=== PATIENT | male | born 1965 | race Caucasian/White ===

== ENCOUNTER 2024-01-20 15:46 | Emergency (ER) | payer OTHER ==
[~2024-01-20] VITALS: Ht 172.7 cm; Wt 113.4 kg
[2024-01-20 16:06] VITALS: BP 150/81; PULSE 67; RESP 18; TEMP 97.3; O2SAT 98
[2024-01-20 18:00] VITALS: BP 136/97; PULSE 72; RESP 18; TEMP 97.6; O2SAT 98
[2024-01-20] MEDS: LIDOCAINE MPF 1% 10 MG/ML VIAL INJ ONE (18:03)
[2024-01-20] MEDS ORDERED: IBUP-2213 PO (18:28)
== END 2024-01-20 18:31 | disposition home or self-care (01) ==
LOC: MED 15:46
DX: S90.451A Superficial foreign body, right great toe, initial encounter (principal); I10 Essential (primary) hypertension; Z88.0 Allergy status to penicillin; Z79.899 Other long term (current) drug therapy; X58.XXXA Exposure to other specified factors, initial encounter; Y93.89 Activity, other specified; Y92.89 Other specified places as the place of occurrence of the external cause; Y99.8 Other external cause status
CPT/HCPCS: 10120; 99285; J2001